=== PATIENT | female | born 1975 | race Caucasian/White ===

== ENCOUNTER 2016-06-10 06:45 | Day surgery (SDC) | payer BC ==
--- NOTE | ~2016-06-10 | OP ---
Record Of Operation [facility] [address] [place]. [address] NAME: ROSA GONZALES : 71 STATUS : [facility] PAT#: [id number] AGE: 40 ADM/REG DATE : 06/10/16 MR#: [id number] REPORT SERV DATE: 06/10/16 DICTATED BY: JEET VALEDS DATE: 06/10/16 REPORT STATUS : Draft TRANSCRIBED BY: NITHIN DATE: 06/10/16 DATE OF PROCEDURE: 06/10/2016 PREOPERATIVE DIAGNOSIS: Severe bilateral hip pain secondary to osteoarthritis. POSTOPERATIVE DIAGNOSIS: Severe bilateral hip pain secondary to osteoarthritis. PROCEDURE: Bilateral fluoroscopically guided intra-articular hip injections. SURGEON: Jeet Valdes M.D. HEAD OF MATHEMATICS: None. COMPLICATIONS: None. INDICATIONS: Ms. Gonzales is a 40-year-old female with a bilateral acetabular dysplasia with secondary osteoarthritis that has had inadequate pain relief with nonsteroidal antiinflammatory. She presents requesting a trial of injection for pain relief. Risks of the procedure including infection, neurovascular damage, failure of pain relief, anesthetic complications and others were discussed prior to proceeding. She fully understood and has requested to proceed. DESCRIPTION OF PROCEDURE: The patient was brought to the phase 2 procedure room and positioned in a supine position. All appropriate pressure points were padded. She received fentanyl and Versed for conscious sedation. Both groins were prepped and draped in the usual sterile fashion. The skin was anesthetized with 4 mL of 1% plain lidocaine. A 22- gauge spinal needle was then introduced in the right hip under fluoroscopic guidance taking care to avoid the femoral neurovascular structures. Appropriate needle placement was confirmed using radiopaque contrast and the hip injected with 80 mg of Depo-Medrol and 4 mL of 0.5% Marcaine. The needle was removed and a sterile dressing applied. The left hip was injected in an identical fashion. The patient was then returned to recovery in stable condition. POSTOPERATIVE PLAN: She should be immobilized. Weightbearing as tolerated. She will follow up with me in two-three weeks. MIL/NITHIN Jeet Valdes M.D. / [id number] CC: Record Of Operation [place] [place] [address] [place]. [address] NAME: ROSA GONZALES : 71 STATUS : [facility]#: [id number] AGE: 40 ADM/REG DATE : 06/10/16 MR#: [id number] REPORT SERV DATE: 06/10/16 DICTATED BY: JEET VALDES DATE: 06/10/16 REPORT STATUS : Draft TRANSCRIBED BY: MODL DATE: 06/10/16 Ester Contreras M.D.
[~2016-06-10 06:45] MED LIST: ADDERALL15 MG PO; AMB10 PO; AUG875 PO; CYMBALTA60 PO; FLEX PO; IBU400 PO; KLONO5 PO; VOLTXR100 PO
[2016-07-09] MEDS ORDERED: PCET PO (14:59)
[2016-10-26] MEDS ORDERED: ULTRAM50 PO (11:16)
[2016-10-26] MEDS ORDERED: VITAMIN D1000 UNI1 PO (11:17)
== END 2016-06-10 08:39 | disposition home or self-care (01) ==
LOC: SDC 06:45
PROVIDERS: Specialist
PROC: 3E0U329 Introduction of Other Anti-infective into Joints, Percutaneous Approach (ICD-10-PCS; principal; 2016-06-10 07:45)
DX: M25.552 Pain in left hip (principal); M25.551 Pain in right hip; M16.0 Bilateral primary osteoarthritis of hip; F41.9 Anxiety disorder, unspecified; F32.9 Major depressive disorder, single episode, unspecified; D64.9 Anemia, unspecified; Z98.890 Other specified postprocedural states
CPT/HCPCS: 84703; J1040; J2250; J3010; Q9967

== ENCOUNTER 2016-06-17 21:37 | Emergency (ER) | payer BC ==
[2016-07-09] MEDS ORDERED: PCET PO (14:59)
[2016-10-26] MEDS ORDERED: ULTRAM50 PO (11:16)
[2016-10-26] MEDS ORDERED: VITAMIN D1000 UNI1 PO (11:17)
== END 2016-06-17 21:41 | disposition home or self-care (01) ==
LOC: ER 21:37
DX: M25.551 Pain in right hip (principal); F32.9 Major depressive disorder, single episode, unspecified; F41.9 Anxiety disorder, unspecified; D64.9 Anemia, unspecified; Z88.2 Allergy status to sulfonamides; Z79.899 Other long term (current) drug therapy
CPT/HCPCS: 73502-RT; 99284; A9270-GY

== ENCOUNTER 2016-07-20 05:39 | Inpatient (IN) | payer BC ==
[2016-07-08 11:13] LABS: BASOPHILS 0.2 %; BASOPHILS ABSOLUTE 0.01 10/3/uL (0.0-0.16); EOSINOPHILS 2.4 %; EOSINOPHILS ABSOLUTE 0.12 10/3/uL (0.0-0.53); HEMATOCRIT 36.4 % (36.0-48.0); HEMOGLOBIN 12.3 g/dL (12.0-16.0); IMMATURE GRANULOCYTES 0.2 %; IMMATURE GRANULOCYTES ABSOLUTE 0.01 10/3/uL (0.0-0.11); LYMPHOCYTES 31.1 %; LYMPHOCYTES ABSOLUTE 1.53 10/3/uL (0.67-4.30); MEAN CORPUS HGB CONC 33.8 g/dL (32.0-36.0); MEAN CORPUSCULAR HEMOGLOB 32.1 pg (26.0-34.0); MEAN PLATELET VOLUME 8.8 fL (9.2-13.0); MONOCYTES 8.9 %; MONOCYTES ABSOLUTE 0.44 10/3/uL (0.21-1.20); NEUTROPHILS 57.2 %; NEUTROPHILS ABSOLUTE 2.81 10/3/uL (2.02-8.40); PLATELET COUNT 254 10/3/uL (150-400); RED CELL COUNT 3.83 10/6/uL (4.0-5.6); WHITE BLOOD CELLS 4.9 10/3/uL (4.5-10.5)
[2016-07-08 11:14] LABS: MANUAL DIFF NO %
[2016-07-08 11:25] LABS: INTERNATIONAL NORMAL RATI 0.9 UNITS (-); PARTIAL THROMBO TIME 26.9 SEC (22.5-37.2); PROTIME (NOT ORD) 12.2 SEC (12.0-14.5)
[2016-07-08 11:28] LABS: ALBUMIN 3.5 G/DL (3.5-5.0); CALCIUM, SERUM 8.7 MG/DL (8.5-10.4); CHLORIDE, SERUM 104 MMOL/L (96-112); CO2 (CARBON DIOXIDE) 32 MMOL/L (24-34); CREATININE 0.76 MG/DL (0.55-1.02); GFR AFRICAN AMERICAN 112 ML/MIN (>=60); GFR NON AFRICAN AMERICAN 97 ML/MIN (>=60); POTASSIUM, SERUM 4.1 MMOL/L (3.5-5.3); SGOT(AST) 17 U/L (5-40); SGPT(ALT) 19 U/L (5-65); SODIUM, SERUM 142 MMOL/L (135-148); TOTAL BILIRUBIN 0.4 MG/DL (0-1.2); TOTAL PROTEIN 7.5 G/DL (6.0-8.5)
[2016-07-08 11:30] LABS: A/G RATIO 0.9 (0.7-1.9); ALKALINE PHOSPHATASE 71 U/L (45-117); BUN (BLOOD UREA NITROGEN) 21 MG/DL (6-23); GLUCOSE, SERUM 81 MG/DL (60-99)
[2016-07-08 13:32] LABS: ASCORBIC ACID (UR NOT ORDER) 20 (NEG); BILIRUBIN, URINE NEGATIVE (NEG); KETONE, URINE NEGATIVE (NEG); LEUKOCYTE ESTERASE(NOT OR NEG (NEG); WBC (NOT ORDERED) (RFLEX) 2 (0-5)
--- NOTE | ~2016-07-20 | OP ---
Record Of Operation [facility] [address] [place]. [address] NAME: ROSA GONZALES : 71 STATUS : ADM IN [facility]#: [id number] AGE: 40 ADM/REG DATE : 07/20/16 MR#: [id number] REPORT SERV DATE: 07/20/16 DICTATED BY: JEET VALDES DATE: 07/20/16 REPORT STATUS : Draft TRANSCRIBED BY: MODL DATE: 07/20/16 DATE OF PROCEDURE: 07/20/2016 PREOPERATIVE DIAGNOSIS: Severe osteoarthritis of the right hip secondary to acetabular dysplasia. POSTOPERATIVE DIAGNOSIS: Severe osteoarthritis of the right hip secondary to acetabular dysplasia. PROCEDURE: Right total hip arthroplasty. SURGEON: Jeet Valdes M.D. WOODWORKING CRAFTSMAN: Luís Good. ANESTHESIA: General endotracheal. ESTIMATED BLOOD LOSS: 300 mL. COMPLICATIONS: None. DRAINS: ConstaVac x1. IMPLANTS: DePuy [place] 52 mm outer diameter cup with a 36 mm inner diameter, +4 lateralized polyethylene liner. The femoral component was a size 4 high offset Haakon stem with a 36 mm +1.5 head and neck segment. INDICATIONS FOR SURGERY: Ms Gonzales is a 40-year-old female with severe right hip pain secondary to dysplasia. She presents requesting total hip arthroplasty. She has failed to improve with all attempts of nonoperative management. Risks of the procedure as detailed in the history and physical, and operative consent were discussed prior to proceeding. She fully understood and has requested to proceed. DESCRIPTION OF PROCEDURE: The patient was brought to the operating room and after adequate induction of anesthesia, was positioned in the lateral decubitus position using the hip public health epidemiologist positioners. All appropriate pressure points were padded and axillary roll was placed. The appropriate operative site was identified and confirmed by both the surgeon and the operating room staff in time out. The hip was then prepped and draped in the usual sterile fashion. A posterior lateral approach to the hip was performed. The skin and subcutaneous tissues were incised sharply using a #10 blade. Electrocautery was used as needed to maintain hemostasis. The fascia quang and fascia over the gluteus rolando were divided in line with the incision. The fibers of the gluteus rolando were split bluntly. The sciatic nerve was identified and carefully protected throughout the remainder of the case. Record Of Operation [facility] [address] [address] NAME: ROSA GONZALES : 71 STATUS : ADM IN PAT#: [id number] AGE: 40 ADM/REG DATE : 07/20/16 MR#: [id number] REPORT SERV DATE: 07/20/16 DICTATED BY: JEET VALDES DATE: 07/20/16 REPORT STATUS : Draft TRANSCRIBED BY: NITHIN DATE: 07/20/16 The Charnley retractor was then placed. The hip was placed in internal rotation and the superior border of the piriformis tendon identified. A full thickness capsulotomy was begun at the superior border of the piriformis tendon and extended anteriorly/inferiorly using an inside/out technique. A portion of the short external rotators were taken down in the capsular exposure. Leg length measurements were then taken. The hip was then dislocated posteriorly. The femoral neck was then marked and resected at the predetermined level from templating using an oscillating saw. Attention was then turned to the femur and the medial aspect of the greater trochanter was debrided of all cortical bone and soft tissue. The intramedullary canal was opened with a triple reamer. The femur was then sequentially reamed to the appropriate size Haakon stem. The femur was then sequentially broached, once again to the appropriately sized implant. The femoral neck resection was slightly revised using a calcar mill to bring it to the level of the femoral broach. The broach was then removed. Attention was then turned to the acetabulum and the acetabulum was debrided of all labral remnants, osteophytes, and the medial fibrofatty tissue was debrided and the true medial wall of the acetabulum identified. The acetabulum was then sequentially reamed from a size 43 mm hemispherical reamer to a reamer 1 mm smaller than the final component. At this level there was circumferential bleeding of subchondral bony surface. Any subchondral cysts were curetted. The true acetabular cup was then impacted into the acetabulum and a trial liner placed. A trial reduction was then performed. The leg lengths were felt to be equal. The hip was stable at its limited extension and external rotation and to 90 degrees of flexion and 80 degrees of internal rotation. The hip was also stable in the position of sleep. At this point all trial components were removed and the acetabular hole director private placed in the acetabular shell. The true acetabular liner was then impacted in the clean acetabular shell. The femoral canal was then copiously irrigated with normal saline and suctioned dry. The true femoral stem was then impacted into the femur to an identical depth and identical anteversion of the trial component. A trial reduction was once again performed to assure that there was no change in leg length or stability. The true femoral head ball was then impacted into the clean femoral taper. The acetabulum was inspected to be sure it was free of all foreign matter and the hip reduced. The wound was copiously irrigated with pulsatile lavage and normal saline. The capsule was repaired using interrupted #1 Vicryl suture in [id number] fashion. The short external rotators were repaired using #5 Ethibond in horizontal mattress fashion. Drain placed deep to the fascia. The fascia was closed with interrupted #5 Ethibond sutures in [id number] fashion. The subcutaneous tissues approximated with interrupted 2-0 Vicryl suture and the skin stapled. Sterile dressing applied. The patient awakened and taken to the recovery room in stable condition. POSTOP PLAN: The patient is to be mobilized weightbearing as tolerated with physical therapy. Posterior hip dislocation precautions. The patient is to be on Coumadin and mechanical deep venous thrombosis prophylaxis. Record Of Operation [address] [place]. [address] NAME: ROSA GONZALES : 71 STATUS : ADM IN [facility]#: [id number] AGE: 40 ADM/REG DATE : 07/20/16 MR#: [id number] REPORT SERV DATE: 07/20/16 DICTATED BY: JEET VALDES DATE: 07/20/16 REPORT STATUS : Draft TRANSCRIBED BY: NITHIN DATE: 07/20/16 MIL/NITHIN Jeet Valdes M.D. / [id number] CC: Jeet Valdes M.D.
[~2016-07-20 05:39] MED LIST changes: +PCET PO
[2016-07-21 07:11] LABS: BUN (BLOOD UREA NITROGEN) 7 MG/DL (6-23); CALCIUM, SERUM 7.8 MG/DL (8.5-10.4); CHLORIDE, SERUM 103 MMOL/L (96-112); CO2 (CARBON DIOXIDE) 27 MMOL/L (24-34); CREATININE 0.66 MG/DL (0.55-1.02); GFR AFRICAN AMERICAN 126 ML/MIN (>=60); GFR NON AFRICAN AMERICAN 109 ML/MIN (>=60); GLUCOSE, SERUM 139 MG/DL (60-99); INTERNATIONAL NORMAL RATI 1.3 UNITS (-); POTASSIUM, SERUM 3.5 MMOL/L (3.5-5.3); PROTIME (NOT ORD) 15.7 SEC (12.0-14.5); SODIUM, SERUM 139 MMOL/L (135-148)
[2016-07-21 07:15] LABS: HEMATOCRIT 28.4 % (36.0-48.0); HEMOGLOBIN 9.6 g/dL (12.0-16.0)
[2016-07-22 05:29] LABS: INTERNATIONAL NORMAL RATI 2.4 UNITS (-); PROTIME (NOT ORD) 25.7 SEC (12.0-14.5)
[2016-07-22 05:42] LABS: HEMATOCRIT 27.3 % (36.0-48.0); HEMOGLOBIN 9.3 g/dL (12.0-16.0)
[2016-07-22] MEDS ORDERED: DIL4TAB PO (09:23)
[2016-07-22] MEDS ORDERED: C2 PO (09:24)
[2016-10-26] MEDS ORDERED: ULTRAM50 PO (11:16)
[2016-10-26] MEDS ORDERED: VITAMIN D1000 UNI1 PO (11:17)
== END 2016-07-22 12:41 | disposition home or self-care (01) | DRG 470 ==
LOC: SDC/OF 05:39 → PACU 09:24 → 3JRC 11:20
PROVIDERS: Internal Medicine; Specialist
PROC: 0SR902A Replacement of Right Hip Joint with Metal on Polyethylene Synthetic Substitute, Uncemented, Open Approach (ICD-10-PCS; principal; 2016-07-20 06:30)
DX: M16.11 Unilateral primary osteoarthritis, right hip (principal); F32.9 Major depressive disorder, single episode, unspecified; F90.9 Attention-deficit hyperactivity disorder, unspecified type; F41.9 Anxiety disorder, unspecified; Z79.899 Other long term (current) drug therapy; Z88.2 Allergy status to sulfonamides
CPT/HCPCS: 36415; 71020; 72170; 80048; 80053; 81001; 84703; 85014; 85018; 85025; 85610; 85730; 86850; 86900; 86901; 87641; 88304; 88311; 93005; 97110-GP; 97116-GP; 97161-GP; 97165-GO; A9270-GY; C1713; C1776; J0690; J1170; J2250; J2370; J2405; J2550; J2710; J3010